=== PATIENT | male | born 1990 | race Caucasian/White ===

== ENCOUNTER 2021-01-10 04:53 | Inpatient (IN) | payer MEDICAID ==
[~2021-01-10] VITALS: Ht 185.4 cm; Wt 88.5 kg
[2021-01-10] MEDS ORDERED: SODIUM CHLORIDE 0.9% 1,000 ML IV ONE ×2 (05:30→06:30)
[2021-01-10] MEDS ORDERED: SODIUM CHLORIDE FLUSH 10ML SYR IVF ONE (05:30)
[2021-01-10] MEDS ORDERED: LORazepam 2 MG/ML, 1ML IVPush PRN (05:30)
[2021-01-10] MEDS ORDERED: PANTOPRAZOLE 80 MG in SODIUM CHLORIDE 0.9% 100 ML IV SCH (05:30)
[2021-01-10] MEDS ORDERED: PLEASE ENTER ALLERGIES MC SCH (05:30)
--- NOTE | 2021-01-10 05:45 | NUR ---
pt brought in by [facility] critical care team from [place] for medical treatment of alcohol withdrawl symptoms. Pt last drink at 3pm yesterday. Presented to ED w/ highest recorded CIWA of 20 per transport team. pt received a variety of medications at [place] including: Ativan, Morphine, Zofran, Pepcid, Protonix, IV and PO Potassium, Magfnesium, IVF, GI cocktail, bana bag, NSS w/ Thiamine. Pt most recently received 4mg Zofran at 0327 and 8mg Morphine at 0355 for diffuse abdominal pain. pt alert and oriented x4, GCS 15, calm and cooperative. Pt had a magnesium of 1.24 and a Potassium of 3.3 per critical care staff at [place] that was corrected via IVF and electrolytes. Pt seeking detox and help with chronic alcohol use. Pt attempted to quit cold turkey in 2017, had withdrawl seizures and DT's. Pt works senior talent management consultant, has 3 daughters, denies any SI/HI.
[2021-01-10 05:48] LABS: MEAN CORPUSCULAR HEMOGLOBIN 34.7 pg (27.5-34.5); MEAN CORPUSCULAR HGB CONC 33.9 g/dL (33.2-36.2); MEAN PLATELET VOLUME 7.9 fL (7.4-10.4); PLATELET COUNT 134 x10^3/uL (130-400); RED BLOOD COUNT 4.08 x10^6/uL (4.38-5.82)
[2021-01-10 05:56] LABS: ALANINE AMINOTRANSFERASE 76 U/L (12-78); ALBUMIN 2.7 g/dL (3.4-5.0); ANION GAP 4 mmol/L (5-15); CALCIUM 8.6 mg/dL (8.5-10.1); CHLORIDE 105 mmol/L (98-107); CREATININE 0.97 mg/dL (0.7-1.3)
[2021-01-10 05:58] LABS: ALKALINE PHOSPHATASE 166 U/L (45-117); BILIRUBIN,TOTAL 1.5 mg/dL (0.2-1.0); TOTAL PROTEIN 6.2 g/dL (6.4-8.2)
[2021-01-10 06:13] LABS: <PLATELET ESTIMATE> DECREASED; ANISOCYTOSIS 1+; EOS#(MANUAL) 0.15 x10^3/uL (0.0-0.4); EOS% (MANUAL) 2 % (1-7); LARGE PLATELETS 1+; LYMPH#(MANUAL) 2.36 x10^3/uL (1-3.4); LYMPHS% (MANUAL) 31 % (22-44); MONOS#(MANUAL) 0.08 x10^3/uL (0.3-2.7); MONOS% (MANUAL) 1 % (2-9); REACTIVE LYMPHS # (MANUAL) 0.23 x10^3/uL (0-0); REACTIVE LYMPHS % (MANUAL) 3 % (0-0); SEG#(MANUAL) 4.79 x10^3/uL (1.8-6.8); SEGS% (MANUAL) 63 % (42-75)
[2021-01-10] MEDS ORDERED: SODIUM CHLORIDE FLUSH 10ML SYR IVF PRN (06:30)
--- NOTE | 2021-01-10 07:02 | NUR ---
Report given to chargemaster analyst, med tele. No further questions
[2021-01-10 07:28] VITALS: BP 118/76
[2021-01-10] MEDS ORDERED: LORazepam 2 MG/ML, 1ML IV PRN ×4 (07:30)
[2021-01-10] MEDS ORDERED: NICOTINE 21 MG/24 HR PATCH.TD24 TD ONE (07:30)
[2021-01-10] MEDS ORDERED: LORazepam 1MG TABLET PO PRN ×4 (07:30)
[2021-01-10] MEDS ORDERED: FOLIC ACID 1 MG TABLET PO ONE (07:30)
[2021-01-10] MEDS ORDERED: ONDANSETRON 2MG/ML, 2ML IVPush PRN (07:30)
[2021-01-10] MEDS: KETOROLAC 30 MG/1 ML IM PRN (08:33)
[2021-01-10] MEDS: FAMOTIDINE 20 MG TABLET PO SCH ×2 (08:33→20:05)
[2021-01-10] MEDS: MULTIVITAMINS/MINERALS TABLET PO SCH (08:34)
[2021-01-10] MEDS: DIVALPROEX 250 MG TABLET.DR PO SCH ×3 (08:34→22:56)
[2021-01-10] MEDS: GABAPENTIN 300 MG CAPSULE PO SCH ×3 (08:34→22:56)
[2021-01-10] MEDS: NICOTINE 14MG/24 HR PATCH.TD24 TD SCH (09:00)
[2021-01-10 12:30] VITALS: BP 108/61
[2021-01-10 15:05] LABS: AMPHETAMINE SCREEN, URINE Negative (Negative); BARBITURATE SCREEN, URINE Positive (Negative); BENZODIAZEPINE SCREEN, URINE Negative (Negative); CANNABINOID SCREEN, URINE Positive (Negative); COCAINE SCREEN, URINE Negative (Negative); METHADONE SCREEN, URINE Negative (Negative); OPIATE SCREEN, URINE Positive (Negative)
[2021-01-10 15:23] LABS: MICROSCOPIC INDICATED
[2021-01-10 17:49] VITALS: BP 108/61
[2021-01-10 19:59] VITALS: BP 114/78
[2021-01-10] MEDS: TRAZODONE 100MG TABLET PO SCH (20:05)
[2021-01-11 01:25] VITALS: BP 122/71
[2021-01-11] MEDS: KETOROLAC 30 MG/1 ML IM PRN (04:20)
[2021-01-11 07:39] LABS: BASOPHILS % (AUTO) 0 % (0-1); EOSINOPHILS % (AUTO) 2 % (1-7); LYMPHOCYTES % (AUTO) 28 % (22-44); MEAN CORPUSCULAR HEMOGLOBIN 34.8 pg (27.5-34.5); MEAN PLATELET VOLUME 8.1 fL (7.4-10.4); MONOCYTES % (AUTO) 8 % (2-9); NEUTROPHILS % (AUTO) 62 % (42-75); PLATELET COUNT 114 x10^3/uL (130-400); RED BLOOD COUNT 3.98 x10^6/uL (4.38-5.82); RED CELL DISTRIBUTION WIDTH 13.3 % (9.4-14.8)
[2021-01-11 07:44] LABS: ALBUMIN 2.5 g/dL (3.4-5.0); ANION GAP 4 mmol/L (5-15); CALCIUM 7.9 mg/dL (8.5-10.1); CHLORIDE 105 mmol/L (98-107)
[2021-01-11 07:47] LABS: ALANINE AMINOTRANSFERASE 64 U/L (12-78); ALKALINE PHOSPHATASE 145 U/L (45-117); BILIRUBIN,TOTAL 0.9 mg/dL (0.2-1.0); CREATININE 0.94 mg/dL (0.7-1.3); TOTAL PROTEIN 5.6 g/dL (6.4-8.2)
[2021-01-11] MEDS: GABAPENTIN 300 MG CAPSULE PO SCH ×3 (07:50→23:54)
[2021-01-11] MEDS: DIVALPROEX 250 MG TABLET.DR PO SCH ×3 (07:50→23:54)
[2021-01-11 08:00] VITALS: BP 101/59
[2021-01-11] MEDS ORDERED: THIAMINE 100 MG in DEXTROSE 5% 50 ML IVPB SCH (09:00)
[2021-01-11] MEDS: THIAMINE 100MG TABLET PO SCH (10:06)
[2021-01-11] MEDS: OMEPRAZOLE 20 MG CAPSULE.DR PO SCH ×2 (10:06→17:38)
[2021-01-11] MEDS: SUCRALFATE 1 GM/10 ML UDC PO SCH ×4 (10:06→20:05)
[2021-01-11] MEDS: MULTIVITAMINS/MINERALS TABLET PO SCH (10:07)
[2021-01-11] MEDS: NICOTINE 14MG/24 HR PATCH.TD24 TD SCH (10:08)
[2021-01-11] MEDS: FAMOTIDINE 20 MG TABLET PO SCH ×2 (10:08→20:05)
[2021-01-11] MEDS: LORazepam 2 MG/ML, 1ML IV PRN (13:58)
[2021-01-11 14:00] VITALS: BP 123/70
[2021-01-11] MEDS ORDERED: NICOTINE 14MG/24 HR PATCH.TD24 TD ONE (19:30)
[2021-01-11 19:54] VITALS: BP 119/81
[2021-01-11] MEDS: TRAZODONE 100MG TABLET PO SCH (20:05)
[2021-01-12 01:32] VITALS: BP 120/75
[2021-01-12] MEDS: OMEPRAZOLE 20 MG CAPSULE.DR PO SCH ×2 (06:04→17:27)
[2021-01-12] MEDS: SUCRALFATE 1 GM/10 ML UDC PO SCH ×4 (06:05→21:01)
[2021-01-12 06:26] LABS: BASOPHILS % (AUTO) 0 % (0-1); EOSINOPHILS % (AUTO) 2 % (1-7); LYMPHOCYTES % (AUTO) 23 % (22-44); MEAN CORPUSCULAR HEMOGLOBIN 35.7 pg (27.5-34.5); MEAN CORPUSCULAR HGB CONC 34.9 g/dL (33.2-36.2); MEAN PLATELET VOLUME 7.9 fL (7.4-10.4); MONOCYTES % (AUTO) 5 % (2-9); NEUTROPHILS % (AUTO) 70 % (42-75); PLATELET COUNT 109 x10^3/uL (130-400); RED BLOOD COUNT 4.26 x10^6/uL (4.38-5.82); RED CELL DISTRIBUTION WIDTH 13.7 % (9.4-14.8)
[2021-01-12 06:44] LABS: ALANINE AMINOTRANSFERASE 81 U/L (12-78); ALBUMIN 2.7 g/dL (3.4-5.0); ANION GAP 6 mmol/L (5-15); CALCIUM 8.5 mg/dL (8.5-10.1); CHLORIDE 103 mmol/L (98-107); CREATININE 0.78 mg/dL (0.7-1.3)
[2021-01-12 06:46] LABS: ALKALINE PHOSPHATASE 162 U/L (45-117); TOTAL PROTEIN 6.6 g/dL (6.4-8.2)
[2021-01-12 08:00] VITALS: BP 120/74
[2021-01-12] MEDS: FAMOTIDINE 20 MG TABLET PO SCH ×2 (09:19→21:01)
[2021-01-12] MEDS: MULTIVITAMINS/MINERALS TABLET PO SCH (09:19)
[2021-01-12] MEDS: THIAMINE 100MG TABLET PO SCH (09:19)
[2021-01-12 13:00] VITALS: BP 113/69
[2021-01-12] MEDS: LORazepam 2 MG/ML, 1ML IV PRN (15:57)
[2021-01-12 20:38] VITALS: BP 130/81
[2021-01-12] MEDS: TRAZODONE 100MG TABLET PO SCH (21:01)
[2021-01-12] MEDS: NICOTINE 14MG/24 HR PATCH.TD24 TD SCH (21:01)
[2021-01-13 02:23] VITALS: BP 138/81
[2021-01-13] MEDS: OMEPRAZOLE 20 MG CAPSULE.DR PO SCH (05:24)
[2021-01-13] MEDS: SUCRALFATE 1 GM/10 ML UDC PO SCH (07:00)
[2021-01-13 08:20] VITALS: BP 118/68
[2021-01-13] MEDS ORDERED: HYDR-826 PO (08:31)
[2021-01-13] MEDS ORDERED: OMEP-110 PO (08:31)
[2021-01-13] MEDS ORDERED: SUCR1ORA5 PO (08:31)
[2021-01-13] MEDS ORDERED: SENN-223 PO (08:31)
[2021-01-13] MEDS: FAMOTIDINE 20 MG TABLET PO SCH (09:00)
[2021-01-13] MEDS: THIAMINE 100MG TABLET PO SCH (09:00)
[2021-01-13] MEDS: MULTIVITAMINS/MINERALS TABLET PO SCH (09:00)
== END 2021-01-13 10:37 | disposition home or self-care (01) | DRG 241 ==
LOC: ED 06:34 → SUATTDRO 07:05 → EDIP 07:10 → 4EST 07:19
PROVIDERS: ADMIT Internal Medicine; ATTEND Family Medicine
DX: K29.20 Alcoholic gastritis without bleeding (principal); K70.10 Alcoholic hepatitis without ascites; E83.42 Hypomagnesemia; E87.6 Hypokalemia; F10.239 Alcohol dependence with withdrawal, unspecified; F12.10 Cannabis abuse, uncomplicated; Z20.822 Contact with and (suspected) exposure to COVID-19; Z72.0 Tobacco use; K20.90 Esophagitis, unspecified without bleeding; K92.1 Melena
CPT/HCPCS: 36415; 71045; 80053; 80307; 80320; 81001; 83605; 83690; 83735; 84100; 85025; 86803; 87086; 93005; 96374; 96375; G0378; J1885; J2405; C9113; G0480; J2060; J7030